=== PATIENT | male | born 1995 | race Caucasian/White ===

== ENCOUNTER 2020-06-27 21:37 | Emergency (ER) | payer SELFPAY ==
[~2020-06-27] VITALS: Ht 177.8 cm; Wt 76.4 kg
[2020-06-27 21:44] VITALS: BP 144/78; PULSE 84; TEMP 99.2
== END 2020-06-27 22:51 | disposition home or self-care (01) ==
LOC: COL.ER 21:37
DX: S60.221A Contusion of right hand, initial encounter (principal); W22.8XXA Striking against or struck by other objects, initial encounter; Y92.009 Unspecified place in unspecified non-institutional (private) residence as the place of occurrence of the external cause